=== PATIENT | female | born 1965 | race Caucasian/White ===

== ENCOUNTER → 2018-12-16 12:27 | Outpatient (CLI) | payer OTHER, SELFPAY ==
[2018-12-16 14:19] LABS: Thyroid Stimulating Hormone 1.39 uIU/mL (0.47-4.68)
== END ==
PROVIDERS: Family Provider Hospitalist; PCP Hospitalist; Visit Provider Hospitalist
DX: R00.2 Palpitations (principal)
CPT/HCPCS: 36415; 84443

== ENCOUNTER → 2019-11-23 13:04 | Outpatient (CLI) | payer OTHER, SELFPAY ==
--- NOTE | 2019-11-23 | DI.MG.S_ITS ---
BILATERAL DIGITAL SCREENING MAMMOGRAM 3D/2D WITH CAD: 11/23/2019 CLINICAL: Routine screening. Family history of breast cancer. Comparison is made to exams dated: 06/06/2018 mammogram, 12/06/2017 mammogram, and 12/30/2015 mammogram - [facility]. There are scattered fibroglandular elements in both breasts. Current study was also evaluated with a Computer Aided Detection (CAD) system. No significant masses, calcifications, or other findings are seen in either breast. There has been no significant interval change. IMPRESSION: NEGATIVE There is no mammographic evidence of malignancy. A 1 year screening mammogram is recommended. This exam was interpreted at Station ID: [id number]. NOTE: For mammograms, a report in lay terms will be sent to the patient. Approximately 15% of breast malignancies will not be visualized mammographically. In the management of a palpable breast mass, a negative mammogram must not discourage biopsy of a clinically suspicious lesion. Electronically Signed By: Yamini smith/lane:11/23/2019 14:05:23 letter sent: Normal Exam ACR BI-RADS Category 1: Negative [id number]
== END ==
PROVIDERS: Family Provider Hospitalist; PCP Hospitalist; Visit Provider Hospitalist
DX: Z12.31 Encounter for screening mammogram for malignant neoplasm of breast (principal); Z80.3 Family history of malignant neoplasm of breast
CPT/HCPCS: 77063; 77067

== ENCOUNTER → 2019-12-01 12:56 | Outpatient (CLI) | payer OTHER, SELFPAY ==
--- NOTE | 2019-12-01 | DI.CT.S_ITS ---
PROCEDURE: CT ABDOMEN PELVIS W CON INDICATIONS: ABDOMINAL PAIN TECHNIQUE: After the administration of intravenous contrast, 5 mm thick sections acquired from the diaphragm to the symphysis. 5 mm coronal and sagittal reformats were acquired. For radiation dose reduction, the following was used: automated exposure control, adjustment of mA and/or kV according to patient size. COMPARISON: [facility], CT, ABDOMEN/PELVIS WITH CONTRAST, 07/18/2014, 15:03. [facility], CT, ABDOMEN/PELVIS WITH CONTRAST, 03/02/2010, 18:21. [facility], CT, ABDOMEN/PELVIS WITH CONTRAST, 02/06/2010, 20:04. FINDINGS: Image quality: Excellent. ABDOMEN: Lung bases: Lung bases are clear. Heart size is normal. Solid organs: Liver is normal in size and enhancement. Gallbladder is normal. Biliary system is non dilated. Pancreas enhances normally. Spleen is normal in size and enhancement. No adrenal nodules. Kidneys demonstrate normal size and enhancement, without hydronephrosis. Peritoneum and bowel: Bowel loops demonstrate normal wall thickness and caliber. A moderate amount of stool is present as well the colon. There is a soft tissue density in the gravity dependent rectum (series 2 image [id number]), which probably a stool ball. There is a moderate to large amount of stool in colon. No free fluid or air. Nodes and vessels: No retroperitoneal or mesenteric adenopathy by size criteria. Aorta and inferior vena cava are normal in size. Miscellaneous: Prior ventral hernia repair. PELVIS: Genitourinary: Bladder wall may be mildly thickened but bladder is not fully distended. The uterus is absent. Ovaries are not visualized. Miscellaneous: No inguinal hernias or adenopathy. Bones: No suspicious bony lesions. No vertebral body compression fractures. Grade 1 anterolisthesis of L4 on L5 and L5-S1. Deformity of the right iliac bone is consistent is old fracture. 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 IMPRESSION: 1. Moderate chronic obstipation. There is soft tissue density in the gravity dependent posterior wall of the rectum most likely a stool ball. If there are clinical symptoms refer to rectum, please correlate with findings on clinical exam. 2. Previously seen periumbilical ventral hernia is repaired. Dictated by: Tonie Bird M.D. on 12/01/2019 at 14:21 Approved by: Tonie Bird M.D. on 12/01/2019 at 18:39
== END ==
PROVIDERS: PCP Hospitalist; Visit Provider Hospitalist
DX: R10.9 Unspecified abdominal pain (principal); K59.00 Constipation, unspecified
CPT/HCPCS: 74177; Q9967

== ENCOUNTER 2019-12-25 16:28 | Emergency (ER) | payer OTHER, SELFPAY ==
--- NOTE | 2019-12-25 16:38 | DI.RAD.S_ITS ---
PROCEDURE: XR CHEST 1V INDICATIONS: chest pain TECHNIQUE: One view of the chest was acquired. COMPARISON: None. FINDINGS: Surgical changes and devices: None. Lungs and pleura: Lungs are clear. No pleural effusions or pneumothorax. Mediastinum: Mediastinal contours appear normal. Heart size is normal. Bones and chest wall: No suspicious bony lesions. Overlying soft tissues appear unremarkable. IMPRESSION: 1. No acute cardiopulmonary disease. Dictated by: Kj Burgess M.D. on 12/25/2019 at 17:24 Approved by: Kj Burgess M.D. on 12/25/2019 at 17:24
[2019-12-25 16:39] VITALS: BP 149/72; PULSE 80; RESP 15; TEMP 36.9; O2SAT 100; BMI 25.7
[2019-12-25 16:55] LABS: Add Manual Diff / Slide Review NO; Basophils Absolute Auto 100 /uL (0-100); Basophils Percent Auto 0.3 % (0-2); Eosinophils Absolute Auto 100 /uL (0-450); Eosinophils Percent Auto 0.5 % (2-4); Hemoglobin 14.5 g/dL (12.0-16.0); Lymphocytes Absolute Auto 1500 /uL (1100-4500); Lymphocytes Percent Auto 9.9 % (25-40); Mean Corpuscular HGB Conc 34.4 % (30-36); Mean Corpuscular Hemoglobin 31.7 PG (26-34); Mean Corpuscular Volume 92.1 fL (80-100); Monocytes Absolute Auto 400 /uL (0-900); Monocytes Percent Auto 2.8 % (3-14); Neutrophils Absolute Auto 13400 /uL (1500-7000); Neutrophils Percent Auto 86.5 % (50-75); Platelet Count 358 X10^3/uL (150-400); Red Blood Cell Count 4.56 X10^6/uL (4.0-5.2); White Blood Cell Count 15.5 X10^3/uL (4.5-11.0)
[2019-12-25 17:02] LABS: Prothrombin Time 11.4 SECONDS (10.1-12.7)
[2019-12-25 17:04] LABS: PTT Partial Thromboplastin Tim 34 SECONDS (26.4-36.2)
[2019-12-25 17:06] LABS: Alanine Aminotransferase 31 IU/L (<35); Albumin 4.4 g/dL (3.5-5.0); Albumin Globulin Ratio 1.7 (1.0-2.8); Alkaline Phosphatase 63 U/L (38-126); Aspartate Aminotransferase 39 IU/L (14-36); BUN Creatinine Ratio 28.3 (6-22); Bilirubin Total 0.5 mg/dL (0.2-1.3); Blood Urea Nitrogen 17 mg/dL (7-17); Calcium 9.4 mg/dL (8.4-10.2); Carbon Dioxide 27 mmol/L (22-32); Chloride 100 mmol/L (98-107); Creatine Kinase 207 U/L (30-135); Estimated Glomerular Filt Rate > 60.0 mL/min (>60); Globulin 2.6 g/dL (1.7-4.1); Glucose 122 mg/dL (70-100); HEMOLYSIS < 15 (0-50); Lipase 74 U/L (23-300); Potassium 3.9 mmol/L (3.4-5.1); Sodium 137 mmol/L (137-145)
[2019-12-25 17:17] LABS: Troponin I < 0.012 ng/mL (0.01-0.034)
[2019-12-25 17:21] LABS: CKMB % Relative Index 2.2 % (1.5-5.0); Creatine Kinase MB 4.54 ng/mL (<2.37)
[2019-12-25 17:30] VITALS: BP 128/65; PULSE 74; O2SAT 99
[2019-12-25 17:33] VITALS: BP 128/65; PULSE 74; RESP 16; O2SAT 100
[2019-12-25 18:00] VITALS: BP 120/58; PULSE 76; RESP 22; O2SAT 99
--- NOTE | 2019-12-25 18:25 | PC.NURSE ---
I walked by pt room and pt was not in there. I observed her returning from the rest room. Pt states she attempted to press the call button thre times and no one came. I apologized and tried the call button myself. Button is working. Pt appears very upset. When I ask about it she states she has been waiting many hours just staring at the wall and having chest pain and no one cares. I reminded her that I have been in the room a few times, I did put nursing orders in, I did a nursing assessment, I explained her room and call button. Pt replied that something is wrong and she needs help. she tells me that she feels it isn't cardiac related but that she is constipated. Pt states her pain is all chronic except for the chest pain and denies other new pains at this time. per pt request, I updated her on all of her lab work. I did speak with Haleigh Khan about pt who states Dr. Graham will be in to see pt. Pt appears in no acute distress, Respirations even and unlabored. Pt does not want to be in bed, refuses all monitoring devices at this time.
--- NOTE | 2019-12-25 18:50 | ED_ITS ---
HPI - Chest Pain General Chief Complaint: Chest Pain Stated Complaint: Chest Pain Time Seen by Provider: 12/25/19 18:49 Source: patient and EMS Mode of arrival: EMS Limitations: no limitations Related Data Home Medications Medication Instructions Recorded Confirmed ATENOLOL (Tenormin) 50 mg PO Q DAY #0 02/16/10 12/08/19 gabapentin [Neurontin] 600 mg Q8H #0 02/16/10 12/08/19 PRAZOSIN HYDROCHLORIDE (MINIPRES~) 2 mg PO BID #0 04/11/13 12/08/19 duloxetine [Cymbalta] 60 mg PO #0 04/11/13 12/08/19 tizanidine [Zanaflex] 4 mg PO #0 04/11/13 12/08/19 atorvastatin PO 12/08/19 12/08/19 zolpidem PO 12/08/19 12/08/19 hydrocodone-acetaminophen 1 tab PO Q8H PRN 12/25/19 12/25/19 naproxen 500 mg PO BID 12/25/19 12/25/19 Allergies Allergy/AdvReac Type Severity Reaction Status Date / Time hydromorphone [HYDROMORPHONE] Allergy Unknown Unverified 12/08/19 10:16 NSAIDS (Non-Steroidal Allergy Unknown VOMITS Unverified 12/08/19 10:16 Anti-Inflamma BLOOD [NSAIDS (NON-STEROIDAL ANTI-INFLAMMA] Patient History Medical History (Updated 12/25/19 @ 18:51 by Meredith Coelho RN) Right shoulder injury (Acute) Social History Smoking Status: Current every day smoker Smoking Status: Current every day smoker tobacco type: cigarettes alcohol intake frequency: a few times a month Substance Use Type: marijuana Exam Initial Vital Signs Initial Vital Signs: Vital Signs Temperature 98.5 F 12/25/19 16:39 Pulse Rate 80 12/25/19 16:39 Respiratory Rate 15 12/25/19 16:39 Blood Pressure 149/72 H 12/25/19 16:39 Pulse Oximetry 100 12/25/19 16:39 Course Orders Ordered: ED Orders 12/25/19 16:38 XR chest 1V Stat EKG-12 Lead Stat 12/25/19 16:48 Complete Blood Count AUTO DIFF Stat Comprehensive Metabolic Panel Stat Lipase Stat Partial Thromboplastin Time Stat Prothrombin Time INR Stat Troponin & CK Cardiac Panel Stat Vital Signs Vital signs: Vital Signs - 8 hr 12/25/19 16:39 12/25/19 17:30 12/25/19 17:33 Temperature 98.5 F Pulse Rate 80 74 74 Respiratory Rate 15 16 Blood Pressure 149/72 H Blood Pressure [Right Arm] 128/65 128/65 Pulse Oximetry 100 99 100 12/25/19 18:00 Temperature Pulse Rate 76 Respiratory Rate 22 Blood Pressure Blood Pressure [Right Arm] 120/58 L Pulse Oximetry 99 MDM - Chest Pain Lab Data Attestation: I reviewed the patient's lab results. Result diagrams: 12/25/19 16:48 12/25/19 16:48 Labs: Lab Results 12/25/19 12/25/19 12/25/19 Range/Units 16:48 16:48 16:48 WBC 15.5 H (4.5-11.0) X10^3/uL RBC 4.56 (4.0-5.2) X10^6/uL Hgb 14.5 (12.0-16.0) g/dL Hct 42.0 (36-46) % MCV 92.1 (80-100) fL MCH 31.7 (26-34) PG MCHC 34.4 (30-36) % RDW 14.0 (11.6-14.8) % Plt Count 358 (150-400) X10^3/uL Neut % (Auto) 86.5 H (50-75) % Lymph % (Auto) 9.9 L (25-40) % [place] % (Auto) 2.8 L (3-14) % Eos % (Auto) 0.5 L (2-4) % Baso % (Auto) 0.3 (0-2) % Neut # (Auto) 06759 H (7234-0958) /uL Lymph # (Auto) 1500 (5875-9662) /uL [place] # (Auto) 400 (0-900) /uL Eos # (Auto) 100 (0-450) /uL Baso # (Auto) 100 (0-100) /uL PT 11.4 (10.1-12.7) SECONDS INR 1.0 (0.9-1.3) APTT 34 (26.4-36.2) SECONDS Sodium 137 (137-145) mmol/L Potassium 3.9 (3.4-5.1) mmol/L Chloride 100 (98-107) mmol/L Carbon Dioxide 27 (22-32) mmol/L BUN 17 (7-17) mg/dL Creatinine 0.60 (0.52-1.04) mg/dL Estimated GFR > 60.0 (>60) mL/min BUN/Creatinine Ratio 28.3 H (6-22) Glucose 122 H (70-100) mg/dL Calcium 9.4 (8.4-10.2) mg/dL Total Bilirubin 0.5 (0.2-1.3) mg/dL AST 39 H (14-36) IU/L ALT 31 (<35) IU/L Alkaline Phosphatase 63 (38-126) U/L Total Creatine Kinase 207 H (30-135) U/L CK-MB (CK-2) 4.54 H (<2.37) ng/mL CK-MB (CK-2) Rel Index 2.2 (1.5-5.0) % Troponin I < 0.012 (0.01-0.034) ng/mL Total Protein 7.0 (6.3-8.2) g/dL Albumin 4.4 (3.5-5.0) g/dL Globulin 2.6 (1.7-4.1) g/dL Albumin/Globulin Ratio 1.7 (1.0-2.8) Lipase 74 (23-300) U/L Imaging Data Chest x-ray: Radiologist's Impression: [address] [id number] XRay Report Signed Patient: Beverly Pang [facility]#: [id number] : 1965Acct:[id number] Age/Sex: 54 / FDate of Service: 12/25/19 Loc: ED Accession Number: [id number] Procedure: XR chest 1V Ordering Provider: Arabella Graham D.O. PROCEDURE: XR CHEST 1V INDICATIONS: chest pain TECHNIQUE: One view of the chest was acquired. COMPARISON: None. FINDINGS: Surgical changes and devices: None. Lungs and pleura: Lungs are clear. No pleural effusions or pneumothorax. Mediastinum: Mediastinal contours appear normal. Heart size is normal. Bones and chest wall: No suspicious bony lesions. Overlying soft tissues appear unremarkable. IMPRESSION: 1. No acute cardiopulmonary disease. Dictated by: Kj Burgess M.D. on 12/25/2019 at 17:24 Approved by: Kj Burgess M.D. on 12/25/2019 at 17:24 ECG Data Attestation: I personally reviewed and interpreted this ECG as follows: Prior ECG tracings: available for review Interpretation: Sinus rhythm rate of 74 P are 150 QRS of 97 QTC 413. Left anterior fascicular block. Inverted T-wave V1 through V3 and III. no elevation noted. Patient has prior EKG from 07/27/2016 which shows similar change in 3, similar appearing EKG except lateral leads have motion artifact making difficult for comparison to today's EKG. MDM Narrative Medical decision making narrative: Patient left without being seen. Labs, EKG and chest x-ray were reviewed. Discharge Plan Departure Patient Disposition: Left Without Being Seen Clinical Impression: Patient left without being seen Discharge Date/Time: 12/25/19 18:51 Referrals: María Barajas [Primary Care Provider] -
--- NOTE | 2019-12-27 19:30 | PC.NURSE ---
Pt is being seen at [facility] ED, [facility] requested records from this ED visit for continuity of care
== END 2019-12-25 18:51 | disposition left against medical advice (07) ==
PROVIDERS: Emergency Provider Emergency Medicine; PCP Hospitalist
DX: R07.9 Chest pain, unspecified (principal)
CPT/HCPCS: 36415; 71045; 80053; 82550; 82553; 83690; 84484; 85025; 85610; 85730; 93005; 99283

== ENCOUNTER → 2022-05-01 14:36 | Outpatient (CLI) | payer OTHER, SELFPAY ==
--- NOTE | 2022-05-01 | DI.MG.S_ITS ---
BILATERAL DIGITAL SCREENING MAMMOGRAM 3D/2D WITH CAD: 05/01/2022 CLINICAL: Routine screening. Family history of breast cancer. Comparison is made to exams dated: 11/23/2019 mammogram - [facility], 12/30/2015 mammogram, and 12/06/2017 mammogram - [facility]. There are scattered fibroglandular elements in both breasts. Current study was also evaluated with a Computer Aided Detection (CAD) system. No significant masses, calcifications, or other findings are seen in either breast. There has been no significant interval change. IMPRESSION: NEGATIVE There is no mammographic evidence of malignancy. A 1 year screening mammogram is recommended. This exam was interpreted at Station ID: [id number]. NOTE: For mammograms, a report in lay terms will be sent to the patient. Approximately 15% of breast malignancies will not be visualized mammographically. In the management of a palpable breast mass, a negative mammogram must not discourage biopsy of a clinically suspicious lesion. Electronically Signed By: Avery de la torre/lane:05/01/2022 15:55:29 letter sent: Normal Exam ACR BI-RADS Category 1: Negative 3341F
== END ==
PROVIDERS: PCP Hospitalist; Referring Provider Internal Medicine; Visit Provider Internal Medicine
DX: Z12.31 Encounter for screening mammogram for malignant neoplasm of breast (principal); Z80.3 Family history of malignant neoplasm of breast
CPT/HCPCS: 77063; 77067

== ENCOUNTER → 2023-02-15 12:37 | Outpatient (CLI) | payer OTHER, SELFPAY ==
--- NOTE | 2023-02-15 | DI.US.S_ITS ---
PROCEDURE: US PELVIC COMPLETE INDICATIONS: TOBACCO USE PELVIC AND PERINEAL PAIN TECHNIQUE: Real-time scanning was performed of the pelvic organs, with image documentation. Additional endovaginal scanning was necessary due to incomplete visualization of the adnexal and endometrial structures by transabdominal scanning. COMPARISON: [facility], US, PELVIC COMPLETE, 07/18/2014, 14:12. FINDINGS: Uterus: Absent Ovaries: Right ovary is absent Left ovary measures 1 cc. An echogenic focus is likely a senescent calcification. Color and spectral flows are present. Other: No pathologic free fluid. IMPRESSION: Unremarkable postmenopausal appearance of the left ovary. Right ovary and uterus are absent. No acute sonographic abnormality in the pelvis. We strive to produce accurate, complete, and clear reports of imaging services. To assist us in improving patient care, this report was composed using standard report templates and voice recognition software. Therefore, it may contain abnormal punctuation, insertions and/or omissions. Occasional wrong-word or sound-alike substitutions may occur. Though we review the report and make efforts to correct it, we do recommend that the report be read carefully in proper context to recognize any text inaccuracies. Dictated by: Bethel Espinal M.D. on 02/15/2023 at 15:39 Approved by: Bethel Espinal M.D. on 02/15/2023 at 15:41
--- NOTE | 2023-02-15 | DI.CT.S_ITS ---
PROCEDURE: CT CHEST WO CON INDICATIONS: Tobacco use TECHNIQUE: Noncontrast 2.0-2.5 mm thick sections acquired from the pulmonary apices to the posterior costophrenic angles. 7 mm thick axial MIP, and 5 mm coronal and sagittal reformats were then acquired. A low radiation dose technique was utilized. COMPARISON: None. FINDINGS: Image quality: Diagnostic, given the low radiation dose technique. Lungs and pleura: 3 millimeters solid nodule, right lung apex (3/67). Moderate centrilobular emphysema. Mediastinum: Heart size is normal. No pericardial effusion. No mediastinal adenopathy by size criteria. Thoracic aorta and central pulmonary arteries are normal in size. Esophagus is normal in caliber. No hiatal hernia. Bones and chest wall: No suspicious bony lesions. No vertebral body compression fractures. No axillary or supraclavicular adenopathy by size criteria. Thyroid gland is unremarkable. Abdomen: Visualized upper abdomen solid organs and bowel loops appear normal in the absence of contrast. IMPRESSION: LUNG-RADS 2; continued annual follow-up if eligible. Dictated by: Gabe Vieyra M.D. on 02/15/2023 at 15:14 Approved by: Gabe Vieyra M.D. on 02/15/2023 at 15:16
== END ==
PROVIDERS: PCP Registered Nurse; Referring Provider Registered Nurse; Visit Provider Registered Nurse
DX: R10.2 Pelvic and perineal pain (principal); J43.2 Centrilobular emphysema; R91.1 Solitary pulmonary nodule; Z72.0 Tobacco use
CPT/HCPCS: 71250; 76856